=== PATIENT | female | born 1990 | race Caucasian/White ===

== ENCOUNTER 2020-02-19 10:40 | Emergency (ER) | payer OTHER, SELFPAY ==
--- NOTE | ~2020-02-19 | US_ITS ---
EXAMINATION: US pelvic complete w TV DATE: 02/19/2020 12:37 INDICATION: Pelvic pain. Comparison:Ultrasound dated 09/17/2016 TECHNIQUE: Multiple transabdominal and endovaginal sonographic images of the pelvis performed. FINDINGS: The uterus measures 10.1 x 5.7 x 4.4 cm. There are nabothian cysts. The endometrial complex measures 1.4 cm. The right ovary is not visualized. Left ovary measures 2.4 x 2.5 x 2.1 cm with normal vascularity. Sm all amount of free fluid in the pelvic cul-de-sac. IMPRESSION: 1. Enlarged uterus with mild endometrial thickening. Reviewed, dictated and finalized at location A.
[2020-02-19 10:53] VITALS: BP 160/91; PULSE 92; RESP 20; TEMP 36.8; O2SAT 95
[2020-02-19] MEDS: IBUPROFEN IV 800 MG/200 ML 800 MG/200 ML BAG 400 MG IVPB (12:12)
[2020-02-19 12:15] LABS: Basophils Absolute Auto 0.1 K/mm3 (0.0-0.1); Basophils Percent Auto 0.8 % (0.2-1.2); Eosinophils Absolute Auto 0.2 K/mm3 (0-0.3); Eosinophils Percent Auto 3.2 % (0-4.4); Hematocrit 35.8 % (37.0-47.0); Immature Granulocyte Absolute 0.01 K/mm3 (0.00-0.031); Immature Granulocyte Percent A 0.1 % (0-0.5); Lymphocytes Absolute Auto 3.07 K/mm3 (0.9-3.2); Lymphocytes Percent Auto 40.9 % (18.3-44.2); Mean Corpuscular HGB Conc 30.7 g/dl (32-36); Mean Corpuscular Volume 71.7 fl (80-100); Mean Platelet Volume 10.2 fl (7.4-10.4); Monocytes Absolute Auto 0.5 K/mm3 (0.1-0.6); Monocytes Percent Auto 6.7 % (2.6-8.5); Neutrophils Absolute Auto 3.6 K/mm3 (1.3-6.7); Neutrophils Percent Auto 48.3 % (45.5-73.1); Platelet Count Result 387 k/mm3 (150-375); Red Blood Count 4.99 M/mm3 (4.2-5.4); Red Cell Distribution Width 17.2 % (11.5-14.5); White Blood Count 7.5 K/mm3 (4.5-10.0)
[2020-02-19 12:28] LABS: Alanine Aminotransferase 12 U/L (4-35); Albumin Level 3.9 g/dL (3.5-5.1); Alkaline Phosphatase 76 U/L (38-126); Aspartate Amino Transferase 19 U/L (14-36); Bilirubin,Total < 0.1 mg/dL (0.2-1.3); Blood Urea Nitrogen 13 mg/dL (7-17); Calcium 8.3 mg/dL (8.4-10.2); Carbon Dioxide 24 mmol/L (22-30); Chloride 105 mmol/L (98-107); Estimated CRCL calculation 172 ml/min; Estimated Glomerular Filt Rate > 60; Glucose 92 mg/dL (65-105); Potassium 3.7 mmol/L (3.4-5.0); Sodium 138 mmol/L (137-145)
--- NOTE | 2020-02-19 12:31 | ED.ABDPAIN ---
HPI - Abdominal Pain General Chief Complaint: Abdominal Pain <LA Luis Last Filed: 02/19/20 12:58> Stated Complaint: abd pain <LA Luis Last Filed: 02/19/20 12:58> Time Seen by Provider: 02/19/20 11:17 <LA Luis Last Filed: 02/19/20 12:58> Source: patient <LA Luis Last Filed: 02/19/20 12:58> Mode of arrival: ambulatory <LA Luis Filed: 02/19/20 12:58> Limitations: no limitations <LA Luis Last Filed: 02/19/20 12:58> History of Present Illness HPI narrative: Patient is a 30-year-old female who presents to emergency department for evaluation of left adnexal pain that has been present for the last couple of days patient notes she gets frequent pains with ovulation every month. Patient has not taken anything for symptoms denies vaginal bleeding or discharge or other complaints presents per private vehicle in no distress pain does not radiate. <LA Luis Last Filed: 02/19/20 12:58> Related Data Allergies/Adverse Reactions: Allergies Allergy/AdvReac Type Severity Reaction Status Date / Time promethazine Allergy Intermediate HALLUCINATIONS, Verified 03/02/19 15:44 NERVOUS Sulfa (Sulfonamide Allergy Mild RASH Verified 03/02/19 15:45 Antibiotics) adhesive tape Allergy Unknown Verified 03/02/19 15:44 <LA Luis Last Filed: 02/19/20 12:58> Review of Systems Review of Systems: All systems reviewed & are unremarkable except as noted in HPI and below <LA Luis Last Filed: 02/19/20 12:58> Exam Narrative: Exam Narrative: GENERAL: Well-appearing, obese, and in no acute distress. HEAD: Normocephalic, atraumatic. EYES: PERRLA and EOMI. ENT: Nares clear, no rhinorrhea or epistaxis. Mucous membranes moist. NECK: Supple. No adenopathy or masses. CHEST: Clear to auscultation. No respiratory distress. No wheezes rales or rhonchi HEART: Regular rate and rhythm. No murmur heard. Normal peripheral pulses. ABDOMEN: Soft, left-sided adnexal tenderness, nondistended, normal active bowel sounds. EXTREMITIES: Normal range of motion. No edema. SKIN: Warm, dry, no rash. NEURO: No focal deficits. Alert and oriented x3. Cranial nerves II through XII grossly intact PSYCH: Normal mood and affect. <Syed Zepeda PA-C - Last Filed: 02/19/20 12:58> Course Course Emergency Course: Patient in the room in no distress at this time aware of case findings treatment plan and diagnosis felt appropriate for discharge home with reevaluation by primary care and gynecology. Patient provided with reasons to return <Syed Zepeda PA-C - Last Filed: 02/19/20 12:58> Vital Signs Vital signs: Vital Signs Temperature 98.3 F 02/19/20 10:53 Pulse Rate 92 02/19/20 10:53 Respiratory Rate 20 02/19/20 10:53 Blood Pressure 160/91 H 02/19/20 10:53 Pulse Oximetry 95 02/19/20 10:53 Temperature 98.3 F 02/19/20 10:53 Pulse Rate 70 02/19/20 13:10 Respiratory Rate 18 02/19/20 13:10 Blood Pressure 132/60 02/19/20 13:10 Pulse Oximetry 99 02/19/20 13:10 <Syed Zepeda PA-C - Last Filed: 02/19/20 12:58> Vital Signs Temperature 98.3 F 02/19/20 10:53 Pulse Rate 92 02/19/20 10:53 Respiratory Rate 20 02/19/20 10:53 Blood Pressure 160/91 H 02/19/20 10:53 Pulse Oximetry 95 02/19/20 10:53 Temperature 98.3 F 02/19/20 10:53 Pulse Rate 70 02/19/20 13:10 Respiratory Rate 18 02/19/20 13:10 Blood Pressure 132/60 02/19/20 13:10 Pulse Oximetry 99 02/19/20 13:10 <Mohini Stone MD - Last Filed: 03/02/20 07:04> MDM - Abdominal Pain MDM Narrative Medical decision making narrative: Patient with likely menstrual pains given her history and description no other high risk changes in the blood work or imaging felt appropriate for continued reevaluation by gynecology provided with mayank
[2020-02-19 13:10] VITALS: BP 132/60; PULSE 70; RESP 18; O2SAT 99
== END 2020-02-19 13:11 | disposition home or self-care (01) ==
PROVIDERS: Emergency Medicine Emergency Medical Services; Emergency Provider Emergency Medicine; PCP Family Medicine
DX: R10.2 Pelvic and perineal pain (principal); N85.2 Hypertrophy of uterus
CPT/HCPCS: 36415; 76830; 76856; 80053; 85025; 96365; 99284; J1741

== ENCOUNTER 2020-04-20 16:10 | Outpatient (CLI) | payer OTHER, SELFPAY | END 2020-04-20 16:11 | disposition home or self-care (01) | PROVIDERS: Visit Provider Obstetrics & Gynecology | DX: N93.9 Abnormal uterine and vaginal bleeding, unspecified (principal); Z01.812 Encounter for preprocedural laboratory examination | CPT/HCPCS: 36415; 86850; 86900; 86901 ==

== ENCOUNTER 2020-04-22 00:46 | Outpatient (CLI) | payer OTHER, SELFPAY ==
[2020-04-22 18:42] LABS: SARS-CoV-2 RNA PCR Negative
== END 2020-04-22 00:47 | disposition home or self-care (01) ==
LOC: ANHCOVIDDT 00:47
PROVIDERS: Visit Provider Obstetrics & Gynecology
DX: Z01.812 Encounter for preprocedural laboratory examination (principal); Z20.828 Contact with and (suspected) exposure to other viral communicable diseases
CPT/HCPCS: 87635; C9803; U0003

== ENCOUNTER 2020-04-24 01:43 | Day surgery (SDC) | payer OTHER, SELFPAY ==
[2020-04-07 10:12] VITALS: BMI 51.6
--- NOTE | 2020-04-22 07:32 | PM.IMHP ---
H&P: HPI History of Present Illness Date/Time: 04/22/20 07:32 Chief complaint: Enlarged uterus, pelvic pain, Excessive bleeding Narrative: Abby Kline is a 30 year old female 4 para 4 who is admitted for robotic total vaginal hysterectomy and bilateral salpingectomies. She has horribly painful intercourse extreme menstrual pain and a uterine prolapse. Uterus is enlarged and very tender. She also has a hemoglobin of 10.7 consistent with her previous bleeding. Risks and benefits were reviewed including but not exclusive of , aspiration pneumonia, bleeding, transfusion, perforation injury to bowel, bladder, ureters, or other internal organs with need for open laparotomy. She voiced good understanding. She read the [employer] handout entitled hysterectomy as well as the de Daryn handout. She had all questions answered. She asked to proceed Review of Systems Review of Systems: All systems reviewed & are unremarkable except as noted in HPI and below [facility] Social History Social History Alcohol intake: current Drinks per week: 0 Substance use: current Substance use type: marijuana Last use: 1-2/WEEK Spiritual care concerns: No Meds Home Medications and Allergies Home Medications Medication Instructions Recorded Confirmed Type albuterol sulfate [ProAir HFA] 2 puff INHALATION PRN PRN 04/07/20 04/07/20 History cetirizine [Zyrtec] 10 mg PO DAILY 04/07/20 04/07/20 History mometasone-formoterol [Dulera] 2 puff INHALATION BID 04/07/20 04/07/20 History Allergies Allergy/AdvReac Type Severity Reaction Status Date / Time adhesive tape Allergy Intermediate Rash Verified 04/07/20 10:36 promethazine Allergy Intermediate HALLUCINATIONS, Verified 04/07/20 10:36 NERVOUS Sulfa (Sulfonamide Allergy Mild RASH Verified 04/07/20 10:36 Antibiotics) Exam Const: General: no acute distress Eyes: General: appearance normal, both eyes and all related structures Neck: Neck: supple and no JVD Thyroid: thyroid normal Resp: Effort & Inspection: normal respiratory effort Auscultation: clear to auscultation bilaterally Cardio: Rate: regular rate Rhythm: regular rhythm GI: Inspection: scar, striae and other (obese) : General: Yes bladder normal to inspection External Female Exam: normal external appearance Speculum Exam - Vagina: normal appearance of the vagina Speculum Exam - Cervix: normal appearance of the cervix ( second-degree prolapse is present) Bimanual exam- vagina & uterus: enlarged Bimanual Exam- Adnexa, other: normal adnexae Skin: General skin exam: no rashes or lesions noted Extrem: General: normal to inspection and no edema Psych: Mental Status: mental status grossly normal Affect: normal affect Assessment and Plan Additional Plan impression: Enlarged uterus/ uterine prolapse/ dyspareunia/ bleeding refractory to medical therapy Plan: Robotic total vaginal hysterectomy and bilateral salpingectomies
[2020-04-24] VITALS (18 sets, daily range): BP systolic 115–148; BP diastolic 68–98; PULSE 75–105; RESP 13–20; TEMP 36.3–37.3; O2SAT 13–100
--- NOTE | 2020-04-24 06:41 | WPDANESEPPF ---
Anes - Initial Pre Proc Eval Procedure: Operation Date: 04/24/20 07:30 Proposed Procedures p Robotic Assisted Total Vaginal Hysterectomy, Bilateral Salpingectomy - Willie Patiño MD Date/Time: 04/24/20 06:41 Surgeon: Willie Patiño MD Pre Op Diagnosis: Enlarged uterus, pelvic pain, Excessive bleeding Patient Data Age: 30 Gender: F Height: 5 ft 6 in Weight: 148.7 kg Last Vital Signs Temp 36.3 C L 04/24/20 06:32 Pulse 101 H 04/24/20 06:32 Resp 20 04/24/20 06:32 BP 137/87 04/24/20 06:32 Pulse Ox 99 04/24/20 06:32 Allergies Allergy/AdvReac Type Severity Reaction Status Date / Time adhesive tape Allergy Intermediate Rash Verified 04/07/20 10:36 promethazine Allergy Intermediate HALLUCINATIONS, Verified 04/07/20 10:36 NERVOUS Sulfa (Sulfonamide Allergy Mild RASH Verified 04/07/20 10:36 Antibiotics) Home Medications Medication Instructions Recorded Confirmed Type albuterol sulfate [ProAir HFA] 2 puff INHALATION PRN PRN 04/07/20 04/07/20 History cetirizine [Zyrtec] 10 mg PO DAILY 04/07/20 04/07/20 History mometasone-formoterol [Dulera] 2 puff INHALATION BID 04/07/20 04/07/20 History Patient hx anesthesia problems: post op nausea/vomiting Family hx anesthesia problems: post op nausea/vomiting PMFSH Past Medical History Medical History Anxiety Asthma Depression Social History Social History Alcohol intake: current Drinks per week: 0 Substance use: current Substance use type: marijuana Last use: 1-2/WEEK Spiritual care concerns: No Anes - Eval Final PreProcedure Day of Procedure 04/24/20 06:41 Patient weight: super morbidly obese Heart: regular rate and rhythm Lungs: clear to auscultation Airway: Mallampati scale class II Neurological: alert and oriented Last oral intake: >/= 8 hours ASA classification: III Emergent: no Anesthetic plan: proceed Anesthesia type and monitoring: general ETT and standard monitoring Informed Consent: The patient's anesthetic plan and its attendant risks and benefits were discussed with the patient/family/POA. Questions were solicited and answers provided to the satisfaction of the patient/family/POA.
--- NOTE | 2020-04-24 06:48 | WPDHPUPDATE1 ---
History and Physical Update Update Date/Time: 04/24/20 06:48 History and Physical has been reviewed, including an updated exam of the patient. There are NO changes in the patient's condition. Risks, benefits, and alternatives have been discussed and questions answered. Patient agrees to proceed with procedure.
[2020-04-24] MEDS: LACTATED RINGERS 1,000 ML 30 ML IV CONT ×2 (06:50→08:55)
[2020-04-24] MEDS: KETOROLAC 15 MG/ML VIAL (*BKC) IV PUSH (06:58)
[2020-04-24] MEDS: ACETAMINOPHEN 500 MG TABLET 1000 MG PO (06:58)
[2020-04-24] MEDS: SCOPOLAMINE 1.5 MG PATCH TRANSDERM (06:59)
[2020-04-24 07:05] LABS: Basophils Absolute Auto 0.1 K/mm3 (0.0-0.1); Basophils Percent Auto 0.8 % (0.2-1.2); Eosinophils Absolute Auto 0.3 K/mm3 (0-0.3); Eosinophils Percent Auto 3.3 % (0-4.4); Hematocrit 36.1 % (37.0-47.0); Hemoglobin 10.9 g/dL (12.0-15.0); Immature Granulocyte Absolute 0.01 K/mm3 (0.00-0.031); Immature Granulocyte Percent A 0.1 % (0-0.5); Lymphocytes Absolute Auto 2.69 K/mm3 (0.9-3.2); Lymphocytes Percent Auto 32.6 % (18.3-44.2); Mean Corpuscular HGB Conc 30.2 g/dl (32-36); Mean Corpuscular Hemoglobin 21.6 pg (26-34); Mean Corpuscular Volume 71.5 fl (80-100); Mean Platelet Volume 10.1 fl (7.4-10.4); Monocytes Absolute Auto 0.6 K/mm3 (0.1-0.6); Monocytes Percent Auto 6.8 % (2.6-8.5); Neutrophils Absolute Auto 4.6 K/mm3 (1.3-6.7); Neutrophils Percent Auto 56.4 % (45.5-73.1); Platelet Count Result 390 k/mm3 (150-375); Red Blood Count 5.05 M/mm3 (4.2-5.4); Red Cell Distribution Width 16.9 % (11.5-14.5); White Blood Count 8.2 K/mm3 (4.5-10.0)
[2020-04-24] MEDS: ceFAZolin 3 GM/D5W 100 ML 100 ML IVPB (07:20)
--- NOTE | 2020-04-24 08:46 | PM.PROC ---
Procedure Note - Detailed Date of procedure: 04/24/20 Pre-op diagnosis: Enlarged uterus, pelvic pain, Excessive bleeding Surgeon: Willie Patiño MD Postop diagnosis: Enlarged uterus/ pelvic pain / excessive heavy bleeding / pelvic adhesions Procedure: Robotic total vaginal hysterectomy /bilateral salpingectomy / lysis of adhesions EBL: 25cc Anesthesia: General endotracheal Complications: None Findings: Multiple adhesions. A markedly enlarged uterus. Normal-appearing ovaries. Tubes status post tubal ligation. Description of procedure: The patient was prepped and draped in the normal sterile fashion and placed in the dorsal lithotomy position. Under excellent general endotracheal anesthesia weighted speculum was placed in the posterior fornix of vagina. Anterior lip of the cervix was grasped with a single-tooth tenaculum. Uterus sounded to 11cm. Serial dilatation with fragmented dilators was performed. This was followed by passage of the 10. CHENCHO and the 3. Cold cup. A 16 Tamazight catheter was placed in the bladder and drained of clear urine. The remainder of the instruments removed from the vagina. Gloves were changed. A supraumbilical incision was made in the Veress needle passed in the abdomen. The abdomen was filled with CO2 gas [id number]. The 8mm trocar was advanced in the abdomen. The downside was visualized and no injury seen. The patient was placed in Trendelenburg and right and left lateral quadrant incisions made. The 8mm trocars were advanced under direct this is a station assuring no injury bilaterally. A right upper quadrant incision made and the 10mm trocar advanced in the abdomen under direct visualization assuring no injury. The robot was docked. Attention was turned to the console. Multiple adhesions were seen anteriorly from the omentum to the anterior abdominal wall and these were brought down with sharp dissection. There was also adhesions to the left ovary and tube complex and these were sharply dissected carefully avoiding injury to the surrounding colon and small bowel. Adhesions were seen anteriorly from the bladder to the top of the uterus. The round ligament was then grasped on the left clamped, burned, cut. Serially layer by layer the bladder was dissected away from the uterus and cervix in the caudal position to the opposite round ligament which was clamped, burned, cut. The left fallopian tube was then gently dissected away from the ovary and passed off through the mailroom assistant port. The right tube was removed in the same fashion and passed off the mailroom assistant port. The left utero-ovarian ligament was clamped, burned, cut and brought to the level of the previously cut round ligament. The right utero-ovarian ligament was clamped, burned, cut and brought to the level of the Prieb previously cut round ligament on the right. Next the left cardinal and broad ligaments were serially skeletonized hugging cervix and uterus carefully clamping, burning, cut and brought down to level uterine vessels. These were then individually clamped, burned, cut. In like fashion on the right the cardinal and broad ligaments were serially skeletonized hugging the cervix uterus clamped, burned, cut until the uterine vessels on the right could be visualized. These were individually skeletonized and clamped, burned, cut. Excellent blanching of the uterus was seen at this point. A colpotomy incision was made in the cervix uterus and stump of tubes were removed through the vagina. Blood loss was estimated at25cc. The vagina was then closed with continuous running 0V lock from lateral edge to lateral edge and back to the midline. Irrigation was undertaken until clear. All pedicles appeared dry. The robot was undocked. The gas removed from the abdomen. The trocars were removed and the incisions closed with 4 O Monocryl and glue. The instruments removed from the vagina. All sponge, needle, instrument counts were correct. [facility]
[2020-04-24] MEDS: ONDANSETRON INJ 4 MG/2 ML VIAL IV PUSH ×2 (09:51→16:21)
[2020-04-24] MEDS: diphenhydrAMINE HCl INJ 50 MG/ML VIAL 25 MG IV PUSH (10:02)
[2020-04-24] MEDS: MORPHINE SULFATE 4 MG/ML INJ IV PUSH ×3 (10:32→19:28)
[2020-04-24] MEDS: LACTATED RINGERS 1,000 ML 125 ML IV CONT (10:32)
--- NOTE | 2020-04-24 10:41 | OBPPTRN ---
Patient transferred to room #276 via bed. Oriented to unit, room, information board, admission packet and security measures. Patient verbalizes understanding.
[2020-04-24] MEDS: KETOROLAC 30 MG/ML VIAL (*BKC) IV PUSH ×2 (12:43→18:43)
[2020-04-24] MEDS: ENOXAPARIN 40 MG/0.4 ML SYRINGE SUB-Q (12:45)
[2020-04-24] MEDS: DEXTROSE 5%/LACTATED RINGERS 1,000 ML 125 ML IV CONT (18:41)
[2020-04-25 04:15] VITALS: BP 107/64; PULSE 87; RESP 16; TEMP 37.6; O2SAT 99
[2020-04-25] MEDS: IBUPROFEN 600 MG TABLET PO (04:16)
[2020-04-25 05:35] LABS: Basophils Percent Auto 0.3 % (0.2-1.2); Eosinophils Absolute Auto 0.4 K/mm3 (0-0.3); Eosinophils Percent Auto 3.5 % (0-4.4); Hematocrit 33.8 % (37.0-47.0); Hemoglobin 10.3 g/dL (12.0-15.0); Immature Granulocyte Absolute 0.04 K/mm3 (0.00-0.031); Immature Granulocyte Percent A 0.3 % (0-0.5); Lymphocytes Absolute Auto 1.91 K/mm3 (0.9-3.2); Lymphocytes Percent Auto 15.7 % (18.3-44.2); Mean Corpuscular HGB Conc 30.5 g/dl (32-36); Mean Corpuscular Hemoglobin 21.6 pg (26-34); Mean Platelet Volume 10.8 fl (7.4-10.4); Monocytes Absolute Auto 0.7 K/mm3 (0.1-0.6); Monocytes Percent Auto 5.4 % (2.6-8.5); Neutrophils Absolute Auto 9.1 K/mm3 (1.3-6.7); Neutrophils Percent Auto 74.8 % (45.5-73.1); Platelet Count Result 421 k/mm3 (150-375); Red Blood Count 4.76 M/mm3 (4.2-5.4); Red Cell Distribution Width 16.7 % (11.5-14.5); White Blood Count 12.1 K/mm3 (4.5-10.0)
[2020-04-25 07:50] VITALS: BP 142/80; PULSE 92; RESP 18; TEMP 36; O2SAT 100
--- NOTE | 2020-04-25 08:07 | P.DS_ITS ---
DS: Admitting Diagnosis Admitting Diagnosis Admitting Diagnosis: Enlarged uterus, pelvic pain, Excessive bleeding DS: Summary Hospital Course Hospital Course: Abby Kline was admitted after robotic assisted total laparoscopic hysterectomy and bilateral salpingectomy for pelvic pain and uterine prolapse. The above procedure was performed with no complications. She is doing well post op. She states her pain is well controlled with PO medications. She reports minimal bleeding. She is ambulating up to the chair. Her benedict catheter was removed. She is tolerating PO without N/V. She reports passing flatus. Status at Discharge Overall status at discharge: patient is progressing back to baseline Time Spent with Patient Time attestation: Total time spent providing and/or coordinating discharge services: Time spent: Less than 30 minutes Exam Const: General: comfortable and no acute distress Limitations: no limitations Resp: Effort & Inspection: normal respiratory effort Auscultation: clear to auscultation bilaterally Cardio: Rate: regular rate Rhythm: regular rhythm GI: Inspection: non-distended GI Palp: Yes Soft to palpation, Yes Tenderness to palpation present (GI) (milder tenderness to deep palpation) and No Guarding due to palpation present (GI) Auscultation: normal bowel sounds Other: incisions C/D/I covered with dermabond Urinary Catheter: Urinary Catheter: urine clear Skin: General skin exam: normal color Extrem: General: normal to inspection Psych: Mental Status: mental status grossly normal Affect: normal affect DS: Data Data Completed and Pending Pending studies at discharge: Pending at discharge 04/24/20 08:02 Surgical [PTH] Routine Labs on day of discharge: Labs from last 24 hours 04/25/20 04:20 WBC 12.1 H RBC 4.76 Hgb 10.3 L Hct 33.8 L MCV 71.0 L MCH 21.6 L MCHC 30.5 L RDW 16.7 H Plt Count 421 H MPV 10.8 H Immature Gran % (Auto) 0.3 Neut % (Auto) 74.8 H Lymph % (Auto) 15.7 L Scott % (Auto) 5.4 Eos % (Auto) 3.5 Baso % (Auto) 0.3 Lymph # (Auto) 1.91 Scott # (Auto) 0.7 H Eos # (Auto) 0.4 H Baso # (Auto) 0.0 Abs Immat Gran (auto) 0.04 H Absolute Neuts (auto) 9.1 H Absolute Nucleated RBC 0.0 Nucleated RBC % 0.0 Discharge Plan Discharge Patient Disposition: Home, Self-Care Patient Instructions: Laparoscopic Hysterectomy (DC) Stand Alone Forms: General Discharge Instructions Follow-up/Referrals: Willie Patiño MD [Physician] - Discharge Medications: New hydrocodone-acetaminophen [[place]] 5-325 mg tablet 1 tablet PO Q4H PRN (Reason: pain) Qty: 30 RF: 0 Continued cetirizine [Zyrtec] 10 mg Tablet 10 mg PO DAILY RF: 0 albuterol sulfate [ProAir HFA] 90 mcg/actuation HFA aerosol inhaler 2 puff INHALATION PRN PRN (Reason: Wheezing) RF: 0 Dulera 200-5 mcg/actuation HFA aerosol inhaler 2 puff INHALATION BID RF: 0 Primary Care Provider: PHYSICIAN,JET ENGINE MECHANIC Attending physician on admission: Willie Patiño
--- NOTE | 2020-04-25 08:27 | WPDANESPN ---
Anes - Prog Note Post-Op Date/Time: 04/25/20 08:27 Cardiovascular status: normal Respiratory status: normal Airway patency: baseline Mental status: baseline Post-Op hydration status: normal Vital Signs: Last Vital Signs Temp 37.6 C 04/25/20 04:15 Pulse 87 04/25/20 04:15 Resp 16 04/25/20 04:15 BP 107/64 04/25/20 04:15 Pulse Ox 99 04/25/20 04:15 I/O: Intake & Output 04/24/20 04/25/20 04/25/20 23:59 07:59 15:59 Intake Total 540 Output Total 1900 600 Balance -1360 -600 Laboratory Tests 04/25/20 04:20 04/25/20 04:20 WBC 12.1 H RBC 4.76 Hgb 10.3 L Hct 33.8 L MCV 71.0 L MCH 21.6 L MCHC 30.5 L RDW 16.7 H Plt Count 421 H MPV 10.8 H Immature Gran % (Auto) 0.3 Neut % (Auto) 74.8 H Lymph % (Auto) 15.7 L [place] % (Auto) 5.4 Eos % (Auto) 3.5 Baso % (Auto) 0.3 Lymph # (Auto) 1.91 [place] # (Auto) 0.7 H Eos # (Auto) 0.4 H Baso # (Auto) 0.0 Abs Immat Gran (auto) 0.04 H Absolute Neuts (auto) 9.1 H Absolute Nucleated RBC 0.0 Nucleated RBC % 0.0 Post-procedural complaints: none Patient Feedback: Patient satisfied with anesthetic care.
[2020-04-25] MEDS: DOCUSATE SODIUM 100 MG CAPSULE PO (08:52)
[2020-04-25] MEDS: ENOXAPARIN 40 MG/0.4 ML SYRINGE SUB-Q (08:52)
[2020-04-25 12:45] VITALS: BP 114/74; PULSE 102; RESP 18; TEMP 36.7; O2SAT 99
== END 2020-04-25 14:26 | disposition home or self-care (01) ==
LOC: ANHSURGERY 06:49 → ANHOB2 10:23
PROVIDERS: Visit Provider Obstetrics & Gynecology
PROC: (CPT 58552; principal; 2020-04-24 07:30)
DX: N85.2 Hypertrophy of uterus (principal); N80.0 Endometriosis of uterus; K66.0 Peritoneal adhesions (postprocedural) (postinfection); Z98.51 Tubal ligation status; Z98.891 History of uterine scar from previous surgery
CPT/HCPCS: 58552; S2900; 36415; 85025; 88307; 99199; A9270; J0330; J0690; J1100; J1170; J1200; J1650; J1885; J2250; J2270; J2405; J2704; J2710; J3010; J7030; J7120; J7121

== ENCOUNTER 2020-11-05 11:37 | Emergency (ER) | payer OTHER, SELFPAY ==
--- NOTE | ~2020-11-05 | XR_ITS ---
EXAMINATION: XR chest 2V EXAM DATE: 11/05/2020 12:18 INDICATION: Cough and chest pain, symptoms a week. TECHNIQUE: Frontal and lateral projections of the chest obtained and reviewed. There is no prior matthieu dy for comparison. FINDINGS: The lungs are clear. There are no pleural effusions. The cardiomediastinal silhouette is within normal limits. There is no pneumothorax suspected. The bones and soft tissues are unremarkab le. IMPRESSION: Normal chest x-ray exam. Reviewed, dictated and finalized at location B. RACT SPECIALIST IMPRESSION: Normal chest x-ray exam.
[2020-11-05 11:50] VITALS: BP 148/84; PULSE 84; RESP 18; TEMP 36.4; O2SAT 100
--- NOTE | 2020-11-05 11:50 | ED.URI ---
HPI - URI/Sore Throat General Chief Complaint: Upper Respiratory Infection Stated Complaint: cough fatigue headache sore throat Time Seen by Provider: 11/05/20 11:50 Source: patient and RN notes reviewed Mode of arrival: ambulatory Limitations: no limitations History of Present Illness HPI Narrative: 30-year-old female presents to [facility] with complaints of generalized body aches and cough for 1 week. August 31, 2020 diagnosed with COVID-19 which led to pulmonary embolisms which she was started on Xarelto for. States that she has been very compliant with her blood pressure medication and with her Xarelto. Patient reports that she was exposed approximately 10 days ago to someone with influenza B and would like to be tested. Patient appears nontoxic and in otherwise good health. Denies any chest pain. Chest wall pain with coughing only along the right sternal border. Patient states it feels nothing like when she had a PE. Related Data Home Medications Medication Instructions Recorded Confirmed Dulera 2 puff INHALATION BID 04/07/20 11/05/20 albuterol sulfate [ProAir HFA] 2 puff INHALATION PRN PRN 04/07/20 11/05/20 cetirizine [Zyrtec] 10 mg PO DAILY 04/07/20 11/05/20 carvedilol 3.125 mg PO BID 11/05/20 11/05/20 hydrocodone-acetaminophen [[place]] 1 tablet PO PRN PRN 11/05/20 11/05/20 lisinopril-hydrochlorothiazide 10 - 12.5 tablet PO DAILY 11/05/20 11/05/20 rivaroxaban [Xarelto] 20 mg PO DAILY 11/05/20 11/05/20 Allergies Allergy/AdvReac Type Severity Reaction Status Date / Time adhesive tape Allergy Intermediate Rash Verified 11/05/20 12:00 promethazine Allergy Intermediate HALLUCINATIONS, Verified 11/05/20 12:00 NERVOUS Sulfa (Sulfonamide Allergy Mild RASH Verified 11/05/20 12:00 Antibiotics) Review of Systems Review of Systems: Narrative: CONSTITUTIONAL: Denies fever, chills, or sweats. EYES: Denies visual changes, redness, or discharge. ENT: Denies rhinorrhea, sore throat, or otalgia. Nasal congestion intermittent CARDIOVASCULAR: Denies chest pain, palpitations, or edema. RESPIRATORY: Reports cough. Denies dyspnea. GASTROINTESTINAL: Denies abdominal pain, nausea, vomiting, or diarrhea. GENITOURINARY: Denies dysuria or hematuria. SKIN: Denies rash or itching. MUSCULOSKELETAL: Denies back pain, joint pain, or myalgia. NEUROLOGIC: Denies headache, numbness, or weakness. PSYCHIATRIC: Denies anxiety or depression. All other systems reviewed are negative, except as documented in HPI. [facility] Past Medical History Medical History Anxiety Asthma COVID-29 August 2020 Depression Pulmonary embolism August 2020 Social History Social History Alcohol intake: current Drinks per week: 0 Substance use: current Substance use type: marijuana Last use: 1-2/WEEK Spiritual care concerns: No Comments At the time of my signature, I reviewed and agree with the nursing past medical, surgical, social, and family history. There is no relevant family history pertinent to the patient complaint. Exam Narrative: Exam Narrative: GENERAL: This is a well-nourished, well-developed patient, in no apparent distress.Obese. otherwise well-appearing. Nontoxic. Well-kept HEAD: normocephalic, atraumatic. EYES: PERRL. Sclera clear/white. Vision is grossly intact. EARS: External ears normal, auditory canals clear and without drainage, TMs normal without perforation. Hearing grossly intact. NOSE: External nose normal with no obvious nasal discharge, nares without redness, no rhinorrhea. THROAT: Mucous membranes moist, posterior pharynx clear. NECK: Neck supple, non-tender without lymphadenopathy, masses or thyromegaly. CARDIOVASCULAR: Regular rate and rhythm without murmurs, gallops, or rubs. RESPIRATORY: Clear to auscultation. Breath sounds equal bilaterally. No wheezes, rales, or rhonchi. Strong cough noted. GASTROINTESTINAL:
[2020-11-05 12:00] VITALS: BP 148/84; PULSE 84; RESP 18; TEMP 36.4; O2SAT 100
[2020-11-06 17:46] LABS: SARS-CoV-2 RNA PCR Negative
== END 2020-11-05 12:34 | disposition home or self-care (01) ==
PROVIDERS: Emergency Provider Nurse Practitioner; PCP Family Medicine
DX: J40 Bronchitis, not specified as acute or chronic (principal); M94.0 Chondrocostal junction syndrome [Tietze]; Z20.822 Contact with and (suspected) exposure to COVID-19; J45.909 Unspecified asthma, uncomplicated; Z86.711 Personal history of pulmonary embolism; Z86.16 Personal history of COVID-19; Z79.01 Long term (current) use of anticoagulants
CPT/HCPCS: 71046; 87804; 99213; C9803; G0463; U0003; U0005